=== PATIENT | male | born 1985 | race Caucasian/White ===

== ENCOUNTER 2020-06-20 11:02 | Emergency (ER) | payer SELFPAY ==
[2020-06-20] MEDS ORDERED: Ibuprofen 800 MG TAB ONE (11:42)
[2020-06-20] MEDS ORDERED: Ondansetron ODT 4 MG TAB ONE (11:42)
[2020-06-20] MEDS ORDERED: Acetaminophen 500 MG TAB ONE (11:42)
[2020-06-20 12:06] LABS: #Lymphocytes 0.6 thou/uL (1.20-3.40); #Monocytes 0.2 thou/uL (0.11-0.59); #Neutrophils 3.3 thou/uL (1.40-6.50); %Basophils 0.6 % (0.0-1.0); %Eosinophils 0.1 % (0.0-10.0); %Lymphocytes 14.6 % (21.0-51.0); %Monocytes 5.3 % (0.0-10.0); %Neutrophils 79.3 % (42.0-75.0); Hemoglobin 16.7 g/dL (14.0-18.0); Mean Corpuscular HGB CONC 34.1 g/dL (32.0-36.0); Mean Corpuscular Hemoglobin 28.9 pg (27.0-31.0); Mean Corpuscular Volume 84.9 fL (78.0-98.0); Mean Platelet Volume 6.4 fL (7.4-10.4); Platelet Count 155 thou/uL (130-400); Red Blood Cell (RBC) Count 5.76 mill/uL (4.70-6.10); White Blood Cell (WBC) Count 4.2 thou/uL (4.8-10.8)
[2020-06-20 12:12] LABS: ALT (SGPT) 55 U/L (8-55); AST (SGOT) 52 U/L (5-34); Albumin 4.3 g/dL (3.5-5.0); Alkaline Phosphatase 76 U/L (40-110); Anion Gap 16 mmol/L (10-20); BUN (Urea Nitrogen) 7 mg/dL (8.9-20.6); Bilirubin, Total 0.8 mg/dL (0.2-1.2); Calc. Creatinine Clearance 0 mL/min (70-130); Calcium 8.8 mg/dL (7.8-10.44); Carbon Dioxide 24 mmol/L (22-29); Chloride 99 mmol/L (98-107); Globulin 3.4 g/dL (2.4-3.5); Glucose 129 mg/dL (70-105); Potassium 3.6 mmol/L (3.5-5.1); Protein, Total 7.7 g/dL (6.0-8.3); Sodium 135 mmol/L (136-145)
[2020-06-20] MEDS ORDERED: Dexamethasone 10 MG/ML VIAL ONE (13:36)
[2020-06-20] MEDS ORDERED: Azithromycin 250 MG TAB ONE (13:52)
--- NOTE | 2020-06-20 13:53 | RAD ---
PORTABLE CHEST: Date: 06/20/2020 An AP portable film at 1201 hours is compared with the 08/23/2007 study. The heart remains normal in size. There is no major lobar consolidation. I would wonder about the bob g markings being minimally prominent. There are a few areas where there might be the beginnings of so me confluent patches, but this is a marginal finding on this chest x-ray. There are no effusions. The mediastinum appears normal. IMPRESSION: Equivocal prominence of markings. POS: HOME
[2020-06-20] MEDS ORDERED: Iopamidol 370 76% 100 ML VIAL ONE (14:03)
--- NOTE | 2020-06-20 14:20 | CT ---
CT ANGIO OF THE CHEST: DATE: 06/20/2020. FINDINGS: Spiral CT of the chest was done after an injection of IV contrast. Multiplanar reconstructions were done, including MIP images. This is a low to medium sensitivity study for pulmonary embolism. There was no sign of emboli in the larger pulmonary arteries and proximal lobar branches. Medium to smaller-sized emboli would be miss ed on this exam. Within the more proximal arteries, there was no sign of embolism. There is no sign of aortic aneurysm or dissection. Patchy ground-glass densities are seen throughout the lungs bilaterally, all lobes, consistent with C OVID. There are no large effusions. The scans into the upper abdomen showed some mild prominence of the size of the liver. The spleen is enlarged measuring about 17 cm in AP length. IMPRESSION: 1. Low to medium sensitivity study showing no signs of emboli in the larger pulmonary artery branche s. 2. Moderate coverage of small patchy ground-glass densities throughout all lobes consistent with the suspicion of COVID. 3. Mild splenomegaly. Findings called to Dr. Barker at 1310 on 06/20/2020. CODE CR POS: HOME
[2020-06-20 20:18] LABS: SARS-CoV-2 NAA Rapid Test DETECTED (NotDetected)
== END 2020-06-20 14:00 | disposition home or self-care (01) ==
LOC: BURERS 11:02
DX: U07.1 COVID-19 (principal); J12.82 Pneumonia due to coronavirus disease 2019
CPT/HCPCS: 0240U; 36415; 71045; 71275; 80053; 83605; 84484; 85025; 85379; 96374; J1100; Q0162; Q9967